=== PATIENT | male | born 1960 | race Caucasian/White ===

== ENCOUNTER → 2021-11-14 | Outpatient (CLI) | payer OTHER ==
--- NOTE | 2021-11-14 10:00 | KCIC ---
EXAMINATION: Magnetic resonance imaging (MRI) of the lumbar spine without contrast 11/14/2021 8:50 AM HISTORY: Lumbar pain with history of previous surgery. Low back pain with left hip and leg pain. TECHNIQUE: Multiplanar multi-weighted MRI of the lumbar spine was performed without intravenous contr ast using the standard lumbar spine protocol. Contrast information: None administered. COMPARISON: None available. FINDINGS: Transitional anatomy identified at the lumbosacral junction. There is 6 mm anterolisthesis of L3 on L 4. There is sacralization of the fifth lumbar segment and L5 the purposes of this examination. Rudime ntary disc identified at L5-S1. Conus medullaris terminates at L1. Distal spinal cord signal intensit y is normal in all sequences. There is moderate disc height loss at L3-L4 with predominantly Modic ty pe II endplate degenerative changes minimal edema identified anteriorly. At L4-L5 is moderate to adva nced disc height loss with predominantly Modic type II endplate degenerative changes. Disc desiccatio n is identified all levels of lumbar spine. No acute fractures identified. There is moderate anterior marginal osteophytosis, most prominent at L3-L4. Abdominal aorta is normal in caliber. No suspicious retroperitoneal abnormality is identified. T12-L1: There is a circumferential disc bulge with central disc protrusion. Mild facet arthropathy. M ild bilateral neuroforaminal stenosis. Moderate spinal canal stenosis without compression of the conu s medullaris. L1-L2: There is a circumferential disc bulge, unchanged. Mild facet arthropathy. Mild right neurofora adryan stenosis. Mild spinal canal stenosis, exacerbated by congenital narrowing the spinal canal and epidural lipomatosis. L2-L3: There is a circumferential disc bulge with right far lateral disc protrusion, similar to the p rior examination. Moderate facet arthropathy ligament of from infolding. Moderate right and moderate severe left neural foraminal stenosis. Moderate to severe spinal canal stenosis which has progressed since the prior examination, likely secondary to worsened ligamentum flavum infolding. L3-L4: There is a circumferential disc bulge with right foraminal disc extrusion. Severe facet arthro sigifredo ligamentum flavum infolding. Partial hemilaminectomy changes are identified. There is residual bilateral lateral recess stenosis. There is persistent moderate to severe spinal canal stenosis. Ther e is clumping of the nerve roots at this level. Extensive ligamentum flavum infolding noted. L4-L5: There is a circumferential disc bulge. Partial laminectomy changes are identified without resi dual spinal canal stenosis. Moderate left and moderate facet arthropathy. Severe left and moderate ne ural foraminal stenosis. L5-S1: No significant disc herniation. Mild facet arthropathy. No neuroforaminal or spinal canal sten osis. IMPRESSION: Moderate to advanced degenerative changes of the lumbar spine, exacerbated by congenital narrowing an d epidural lipomatosis. There are hemilaminectomy changes identified at L3-L4 with residual moderate to severe spinal canal stenosis and prominent right lateral recess stenosis secondary to facet arthro sigifredo ligamentum flavum infolding and disc. Electronically signed by: Geeta Mays MD (11/14/2021 9:57 AM) [facility]
== END ==
LOC: KCIC MRI 08:32
PROVIDERS: ATTEND Physician Assistant Medical
DX: M47.817 Spondylosis without myelopathy or radiculopathy, lumbosacral region (principal); M48.061 Spinal stenosis, lumbar region without neurogenic claudication; M51.26 Other intervertebral disc displacement, lumbar region; M47.815 Spondylosis without myelopathy or radiculopathy, thoracolumbar region; M48.05 Spinal stenosis, thoracolumbar region; M51.25 Other intervertebral disc displacement, thoracolumbar region
CPT/HCPCS: 72148